=== PATIENT | female | born 1990 | race African-American/Black ===

== ENCOUNTER 2018-12-15 09:02 | Emergency (ER) | payer MEDICAID ==
[~2018-12-15] VITALS: Ht 180.3 cm; Wt 81.0 kg
[2018-12-15 09:25] VITALS: BP 116/72
== END 2018-12-15 15:40 | disposition left against medical advice (07) ==
LOC: ER 09:02
DX: Z53.21 Procedure and treatment not carried out due to patient leaving prior to being seen by health care provider (principal)

== ENCOUNTER 2019-12-18 11:04 | Emergency (ER) | payer MEDICAID ==
[~2019-12-18] VITALS: Ht 180.3 cm; Wt 78.0 kg
[2019-12-18] MEDS ORDERED: SODIUM CHLORIDE 0.9% 1000ML BAG (SEPSIS BOLUS) IV ONE (13:15)
[2019-12-18] MEDS ORDERED: CEFTRIAXONE 1 G PREMIX 50 ML IV ONE (13:15)
[2019-12-18] MEDS ORDERED: AZITHROMYCIN 500 MG in DEXT 5% WATER 250 ML IV ONE (13:15)
[2019-12-18] MEDS ORDERED: ONDANSETRON HCL 4MG/2ML INJ IV ONE (13:15)
[2019-12-18] MEDS ORDERED: ACETAMINOPHEN 325MG TABLET PO ONE (13:30)
[2019-12-18 13:57] LABS: CLARITY URINE CLEAR (CLEAR); COLOR URINE YELLOW (YELLOW); KETONES URINE 2+ (NEGATIVE); LEUKOCYTE ESTERASE URINE 2+ (NEGATIVE); NITRITE URINE NEGATIVE (NEGATIVE); OCCULT BLOOD URINE NEGATIVE (NEGATIVE); PH URINE 5.5 (4.5-8.0); PROTEIN URINE 1+ (NEGATIVE); SPECIFIC GRAVITY URINE 1.025 (1.005-1.030)
[2019-12-18 14:00] LABS: BASOPHILS % 0.5 % (0.0-2.0); EOSINOPHILS % 0.2 % (0.0-5.0); HEMATOCRIT. 44.1 % (36.0-48.0); HEMOGLOBIN. 14.5 g/dL (12.0-16.0); LYMPHOCYTES % 15.7 % (20.0-50.0); MEAN CORPUSCULAR HEMOGLOBIN 29.2 pg (28.0-32.0); MEAN PLATELET VOLUME 10.4 fl (7.4-10.4); MONOCYTES % 6.4 % (2.0-8.0); NEUTROPHILS % 77.2 % (40.0-76.0); PLATELET 199 x1000/uL (130-400); RED BLOOD CELL COUNT 4.95 mill/uL (4.2-5.4); RED CELL DISTRIBUTION WIDTH 14.4 % (11.6-14.6)
[2019-12-18 14:04] LABS: CHLORIDE 112 mEq/L (98-107)
[2019-12-18 14:05] LABS: HCG SCREEN NEGATIVE
[2019-12-18] MEDS ORDERED: IBUPROFEN 600MG TABLET PO ONE (16:15)
[2019-12-18 17:18] VITALS: BP 112/70
== END 2019-12-18 17:21 | disposition home or self-care (01) ==
LOC: ER 11:04
DX: R65.20 Severe sepsis without septic shock (principal); N39.0 Urinary tract infection, site not specified; J20.9 Acute bronchitis, unspecified
CPT/HCPCS: 36415; 71045; 80053; 81003; 83605; 84145; 84703; 85025; 87040; 87086; 93005; 96365; 96366; 96368; 99285; J0456; J0696; J2405; J7030; J7060; 99291

== ENCOUNTER 2023-03-17 09:17 | Emergency (ER) | payer MEDICAID ==
[~2023-03-17] VITALS: Ht 180.3 cm; Wt 73.0 kg
[2023-03-17] MEDS ORDERED: ONDANSETRON 4MG ODT PO ONE (09:45)
[2023-03-17 09:53] LABS: BASOPHILS % 1.1 % (0.0-2.0); EOSINOPHILS % 1.3 % (0.0-5.0); HEMATOCRIT. 37.9 % (36.0-48.0); HEMOGLOBIN. 12.8 g/dL (12.0-16.0); LYMPHOCYTES % 27.2 % (20.0-50.0); MEAN CORPUSCULAR HEMOGLOBIN 29.6 pg (28.0-32.0); MEAN CORPUSCULAR VOLUME 87.9 fL (81.0-99.0); MEAN PLATELET VOLUME 8.9 fl (7.4-10.4); MONOCYTES % 9.6 % (2.0-8.0); NEUTROPHILS % 60.8 % (40.0-76.0); PLATELET 189 x1000/uL (130-400); RED BLOOD CELL COUNT 4.32 mill/uL (4.2-5.4); RED CELL DISTRIBUTION WIDTH 17.2 % (11.6-14.6)
[2023-03-17 10:02] LABS: CHLORIDE 112 mEq/L (98-107)
[2023-03-17 11:47] LABS: HCG SCREEN NEGATIVE
[2023-03-17 13:15] VITALS: BP 112/76
[2023-03-17] MEDS ORDERED: IMOD MT (13:23)
== END 2023-03-17 14:08 | disposition home or self-care (01) ==
LOC: ER 09:17
DX: R10.31 Right lower quadrant pain (principal)
CPT/HCPCS: 36415; 74176; 80053; 83690; 84703; 85025; 99284; Z7610